=== PATIENT | female | born 1990 | race Two or more races ===

== ENCOUNTER 2025-02-20 10:18 | Emergency (ER) | payer MEDICAID ==
[~2025-02-20] VITALS: Ht 160 cm; Wt 71.7 kg
[~2025-02-20 10:18] MED LIST: ZOFR4T PO
--- NOTE | 2025-02-20 11:38 | ED.PDOC ---
HOUSING CASE MANAGER HPI Comments 34 y/o F, presents to the ED for CC of back pain. Patient states, she has been experiencing lower back pain with associated pelvic cramping x3days. Patient reports, that she is currently x5-6 weeks ; endorses LMP to have been in December 2024. Patient denies any trauma, injury, fall, lifting, abdominal pain, or vaginal bleeding. Chief Complaint: Back Pain Time Seen by MD: 11:35 Reviewed Notes: Nurses Notes, Medications, Allergies Allergies: Coded Allergies: NO KNOWN ALLERGIES (Unverified , 04/13/12) Home Meds Active Scripts Ondansetron Odt 4MG Tab (ZOFRAN PO) 4 Mg Tb, 4 MG PO Q8HP PRN for 7 Days, #21 TAB ODT TAB-DISSOLVE IN MOUTH, THEN SWALLOW Prov:SHAJI FERRIS MD 10/16/23 Information Source: Patient Mode of Arrival: Ambulatory Timing: Weeks Prehospital treatment: None Severity: Moderate Vaginal Discharge: None Vaginal Lesions: None Vaginal Mass: None Sexual Activity: Associated Signs and Symptoms: Other (back pain) Past Medical History PAST MEDICAL HISTORY: Denies Surgical History: Family History Family History: No family hx of Cancer, No family hx of Heart wale, No family hx of HTN, No family hx ofKidney wale, No family hx of Liver wale, No family hx of Lung wale, No family hx of Stroke, Family hx of DM Social History Smoker: Non-Smoker Alcohol: Denies ETOH Use Drugs: Denies Drug Use Lives In: Home Constitutional: denies: chills, diaphoresis, fatigue, fever, malaise, sweats, weakness, others EENTM: denies: blurred vision, double vision, ear bleeding, ear discharge, ear drainage, ear pain, ear ringing, eye pain, eye redness, hearing loss, mouth pain, mouth swelling, nasal discharge, nose bleeding, nose congestion, nose pain, photophobia, tearing, throat pain, throat swelling, voice changes, others Respiratory: denies: cough, hemoptysis, orthopnea, SOB at rest, shortness of breath, SOB with excertion, stridor, wheezing, others Cardiovascular: denies: chest pain, dizzy spells, diaphoresis, Dyspnea on exertion, edema, irregular heart beat, left arm pain, lightheadedness, palpitations, PND, syncope, others Gastrointestinal: denies: abdomen distended, abdominal pain, blood streaked bowels, constipated, diarrhea, dysphagia, difficulty swallowing, hematemesis, melena, nausea, poor appetite, poor fluid intake, rectal bleeding, rectal pain, vomiting, others Genitourinary: denies: abnormal vagina bleeding, burning, dyspareunia, dysuria, flank pain, frequency, hematuria, incontinence, pain, , vagina discharge, urgency, others Neurological: denies: dizziness, fainting, headache, left sided numbness, left sided weakness, numbness, paresthesia, pre-existing deficit, right sided numbness, right sided weakness, seizure, speech problems, tingling, tremors, weakness, others Musculoskeletal: reports: back pain; denies: gout, joint pain, joint swelling, muscle pain, muscle stiffness, neck pain, others Integumetry: denies: bruises, change in color, change in hair/nails, dryness, laceration, lesions, lumps, rash, wounds, others Allergic/Immunocompromised: denies: Difficulty Healing, Frequent Infections, Hives, Itching, others Hematologic/Lymphatic: denies: anemia, blood clots, easy bleeding, easy bruising, swollen glands, others Endocrine: denies: excessive hunger, excessive sweating, excessive thirst, excessive urination, flushing, intolerance to cold, intolerance to heat, un explained weight gain, unexplained weight loss, others Psychiatric: denies: anxiety, bipolar disorder, depression, hopeless, panic disorder, schizophrenia, sleepless, suicidal, others All Other Systems: Reviewed and Negative Physical Exam General Appearance: No Apparent Distress, Normal HEENT: Normal ENT Inspection, Pharynx Normal Neck: Full Range of Motion, Non-Tender, Normal, Normal Inspection Respiratory: Chest Non-Tender, Lungs Clear, No Accessory Muscle Use, No Respiratory Distress, Normal Breath Sounds Cardiovascular: No Edema, No Murmur, No Gallop, Normal Peripheral Pulses, Regular Rate/Rhythm Breast Exam: Deferred Gastrointestinal: No Organomegaly, Non Tender, No Pulsatile Mass, Normal Bowel Sounds, Soft Genitalia: Deferred Pelvic: Deferred Rectal: Deferred Extremities: No calf tenderness, Normal capillary refill, Normal inspection, N ormal range of motion, Non-tender, No pedal edema Musculoskeletal : Location: Right Extremity Location: Back (lumbar ) Apperance: Tenderness: Moderate Neurologic: Alert, prepared foods team leader II-XII nml as Tested, No Motor Deficits, Normal Affect, Normal Mood, No Sensory Deficits Cerebellar Function: Normal Reflexes: Normal Skin: Dry, Normal Color, Warm Lymphatic: No Adenopathy Was a procedure done? 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 UTI, Musculoskeletal pain X-Ray, Labs, Meds, VS Vital Signs Date Time Temp Pulse Resp B/P (MAP) Pulse Ox O2 Delivery O2 Flow Rate FiO2 02/20/25 11:19 Room Air* 0 21 02/20/25 11:19 100.1 78 16 105/66 (79) 100 100.1 02/20/25 10:19 97.7 71 18 103/60 99 97.7 Lab Test 02/20/25 10:50 Range/Units Urine Color Light-yellow Yellow Urine Clarity Clear Clear Urine pH 5.5 5.0-9.0 Urine Specific [place] 1.027 1.001-1.035 Urine Protein Negative Negative Urine Ketones Negative Negative Urine Blood Trace H Negative /uL Urine Nitrite Negative Negative Urine Bilirubin Negative Negative Urine Urobilinogen Normal Negative mg/dL Urine Leukocyte Esterase Negative Negative /uL Urine RBC 3 0 - 4 /hpf Urine Microscopic WBC 2 0-5 /HPF Urine Squamous Epithelial Cells Few <5 /hpf Urine Bacteria None seen None Seen /hpf Urine Mucus Few None Seen Urine Glucose Normal Normal mg/dL Urine Test Positive Negative Time of 1ST Reevaluation: 12:00 Reevaluation 1ST: Unchanged Patient Education/Counseling: Diagnosis, Treatment Family Education/Counseling: No Family Present Comments This is a patient who is presents with low back pain. She has a her 1st OBGYN appointment coming up. She has no dysuria or frequent urination. She has no hematuria. She has no fever or chills. No vaginal discharge or vaginal bleeding. No pelvic pain. Examination shows mild paralumbar tenderness no midline tenderness urine is unremarkable. Patient is stable for discharge for low back pain. She is safe to take Tylenol and follow up with her OB doctor. Departure 1 Departure Time of Disposition: 12:37 Impression: Primary Impression: Musculoskeletal pain Disposition: 01 HOME / SELF CARE / HOMELESS Condition: Good Discharged With: Self Critical Care Note Critical Care Time?: No Stability Stability form required: No Heart Score Heart Score: Heart Score Response (Comments) Value History N/A 0 EKG N/A 0 Age N/A 0 Risk Factors N/A 0 Troponin N/A 0 Total 0 I personally scribed for ERIN PINO MD ([facility]) on 02/20/25 at 11:38. Electronically submitted by Joie Frost ([email or web address]). I personally scribed for ERIN PINO MD ([facility]) on 02/20/25 at 12:04. Electronically submitted by Joie Frost ([email or web address]). ERIN PINO MD Feb 20, 2025 11:38
[2025-02-20 12:03] LABS: Urine Protein, UAD Negative (Negative)
[2025-02-20 13:01] VITALS: BP 87/63; PULSE 74; RESP 16; TEMP 98.3; O2SAT 97
== END 2025-02-20 13:12 | disposition home or self-care (01) ==
LOC: ER 10:18
DX: O26.891 Other specified pregnancy related conditions, first trimester (principal); M79.18 Myalgia, other site; Z3A.01 Less than 8 weeks gestation of pregnancy
CPT/HCPCS: 81001; 81025